=== PATIENT | female | born 1955 | race Caucasian/White ===

== ENCOUNTER 2019-10-24 13:20 | Emergency (ER) | payer OTHER ==
[~2019-10-24] VITALS: Ht 177.8 cm; Wt 83.0 kg
--- NOTE | ~2019-10-24 | EKG ---
[place] [address] ELECTROCARDIOGRAM REPORT Name: MORA,LEVI Ingram Room: [facility]#: [id number] Admission: 10/24/19 Attend Phys: Discharge: Date of : 57 Date of Service: 10/24/19 1328 Report #: [id number] THIS REPORT FOR: cc: Myrtle Wolf MD, Michelle R. MD Epiphany, Epiphany MD ~ THIS REPORT FOR: //name// [facility] ED Test Date: 2019-10-24 Test Time: 13:28:49 Pat Name: LEVI MORA Department: Room: Gender: F Doughmaker: [place] : 1955 Requested By: Jace Irving Order Number: [id number] MD: Measurements Intervals [place] Rate: 82 P: 82 NC: 145 QRS: 73 QRSD: 88 T: 68 QT: 374 QTc: 437 Interpretive Statements Sinus rhythm No previous ECG available for comparison [email or web address] By: 1328 1328 Epiphany Epiphany, /EPI
[2019-10-24] MEDS ORDERED: CARVEDILOL6.25 M1 PO (13:44)
[2019-10-24] MEDS ORDERED: PREDNISONE (13:44)
[2019-10-24] MEDS ORDERED: LIPITOR80 MG PO (13:45)
[2019-10-24] MEDS ORDERED: ASA81BEC PO (13:45)
[2019-10-24] MEDS ORDERED: VIRTUSSIN AC L118 ML PO (13:45)
[2019-10-24 14:02] LABS: ABSOLUTE BASOPHILS 0.1 thou/uL (0.0-0.2); ABSOLUTE EOSINOPHILS 0.3 thou/uL (0.0-0.7); ABSOLUTE LYMPHOCYTES 3.5 thou/uL (0.8-5.3); ABSOLUTE MONOCYTES 0.7 thou/uL (0.0-1.2); ABSOLUTE NEUTROPHILS 7.5 thou/uL (1.6-8.1); BASOPHILS 0.9 %; EOSINOPHILS 2.8 %; HEMATOCRIT 40.2 % (37.0-47.0); HEMOGLOBIN 13.8 gm/dL (12.0-15.0); LYMPHOCYTES 28.8 %; MCH 32.4 pg (26.0-34.0); MCHC 34.3 g/dL (28.0-37.0); MCV 94.5 fL (80.0-100.0); MONOCYTES 5.6 %; NUCLEATED RBCS 0 /100WBC; PLATELET COUNT* 250 thou/uL (150-400); POLYS 61.9 %; RBC 4.26 mil/uL (4.20-5.00); RDW-CV 13.5 % (10.5-14.5); WBC 12.1 thou/uL (4.0-11.0)
[2019-10-24 14:12] LABS: CALCIUM 8.1 mg/dL (8.5-10.1); CREATININE 0.7 mg/dL (0.6-1.3); POTASSIUM 3.5 mmol/L (3.5-5.1)
[2019-10-24 14:22] LABS: ALBUMIN 3.6 g/dL (3.4-5.0); MAGNESIUM 1.8 mg/dL (1.8-2.4); TOTAL BILIRUBIN 0.4 mg/dL (<0.1-1.0); TOTAL PROTEIN 7.1 g/dL (6.4-8.2)
[2019-10-24 15:42] VITALS: BP 91/55
== END 2019-10-24 15:43 | disposition home or self-care (01) ==
LOC: M.ERS 13:20
PROVIDERS: Emergency Medicine Emergency Medical Services
DX: R07.89 Other chest pain (principal); Z88.1 Allergy status to other antibiotic agents